=== PATIENT | male | born 1955 | race Caucasian/White ===

== ENCOUNTER 2023-03-08 13:24 | Emergency (ER) | payer MEDICARE, SELFPAY ==
--- NOTE | ~2023-03-08 | XR_ITS ---
XR ankle LT min 3V DATE: 03/08/2023 13:44 INDICATION: Inversion injury. Lateral pain. TECHNIQUE: 4 views COMPARISON: None FINDINGS: There is soft tissue swelling along the lateral aspect of the ankle. There is a linear obli que nondisplaced fracture of the distal femoral shaft/lateral malleolus. The medial and posterior mal leoli appear intact. Ankle mortise appears preserved. IMPRESSION: Nondisplaced lateral malleolar fracture with overlying soft tissue swelling Reviewed, dictated and finalized at location A.
[2023-03-08 13:34] VITALS: BP 153/68; PULSE 59; RESP 16; TEMP 37.1; O2SAT 97
--- NOTE | 2023-03-08 14:06 | ED.LOWEXIN ---
HPI - Extremity Injury (Lower) General Chief Complaint: Extremity Injury, Lower Stated Complaint: Left Ankle Injury Time Seen by Provider: 03/08/23 14:06 Source: patient Mode of arrival: ambulatory Limitations: no limitations History of Present Illness HPI Narrative: 67 y/o male presented for c/o left lateral ankle pain and swelling after injury just prior to arrival. States he slipped on wet leaves on a wooden board and rolled the ankle. Reports decreased range of motion of the ankle due to pain. Has been using crutches from home. Denies numbness, tingling or weakness. Related Data Home Medications Medication Instructions Recorded Confirmed bupropion HCl 150 mg 24 hr tablet, mg PO 03/08/23 extended release duloxetine 30 mg capsule,delayed 30 mg PO DAILY 03/08/23 03/08/23 release famotidine 20 mg tablet 20 mg PO BID 03/08/23 03/08/23 ferrous sulfate 325 mg (65 mg See Rx Instructions .Route .COMPLEX 03/08/23 03/08/23 iron) tablet pantoprazole 40 mg tablet,delayed 40 mg PO DAILY 03/08/23 03/08/23 release Allergies Allergy/AdvReac Type Severity Reaction Status Date / Time No Known Allergies Allergy Verified 03/08/23 14:00 Review of Systems Review of Systems: CONSTITUTIONAL: Denies body aches, fever, chills EYES: Denies visual changes ENT: Denies rhinorrhea, congestion CARDIOVASCULAR: Denies chest pain, palpitations, or edema. RESPIRATORY: Denies cough or dyspnea. GASTROINTESTINAL: Denies abdominal pain, nausea, vomiting, or diarrhea. SKIN: Denies rash, itching, or wounds. MUSCULOSKELETAL: Denies back pain, joint pain, or myalgia. NEUROLOGIC: Denies headache, numbness, tingling, or weakness. PSYCH: Denies depression or anxiety. All systems reviewed & are unremarkable except as noted in HPI and below PMFSH Past Medical History Medical History (Updated 03/08/23 @ 14:40 by Brianna Lechuga APRN) Renal carcinoma Surgical History Surgical History (Updated 03/08/23 @ 14:40 by Brianna Lechuga APRN) History of right nephrectomy Social History Social History (Updated 03/08/23 @ 14:41 by Brianna Lechuga APRN) Substance use: current Substance use type: marijuana Comments At time of signature, I have reviewed and agree with nursing past medical, surgical, social and family history unless otherwise noted. Please see nursing chart for further information. There is no relevant family history pertinent to the presenting complaint Exam Narrative: GENERAL: Well-appearing, and in no acute distress. HEAD: Normocephalic, atraumatic. CHEST: Speaks in full sentences. No respiratory distress. HEART: Regular rate and rhythm. Normal and equal peripheral pulses. EXTREMITIES: Left lateral ankle with moderate swelling, tenderness to lateral malleolus. Limited range of motion at ankle endorses pain with movement. Foot has normal strength and sensation No open wounds, bruising. Pulse palpable and equal bilaterally, skin warm, dry, pink. Capillary refill less than 3 seconds. SKIN: Warm, dry, no rash. NEURO: Alert and oriented x3. PSYCH: Normal mood and affect Course Course Emergency Course: Patient is aware of diagnosis, understands and agrees to treatment plan. Anticipatory guidance given. Patient agrees to follow-up as directed and is aware of reasons to seek care at the emergency department. Portions of this record may have been created with voice recognition software Level of Care: Express Care Visit Vital Signs Vital signs: Vital Signs Temperature 98.8 F 03/08/23 13:34 Pulse Rate 59 L 03/08/23 13:34 Respiratory Rate 16 03/08/23 13:34 Blood Pressure 153/68 H 03/08/23 13:34 Pulse Oximetry 97 03/08/23 13:34 Oxygen Delivery Room Air 03/08/23 13:34 Temperature 98.8 F 03/08/23 13:34 Pulse Rate 59 L 03/08/23 13:34 Respiratory Rate 16 03/08/23 13:34 Blood Pressure 153/68 H 03/08/23 13:34 Pulse Oximetry 97 03/08/23 13:34 Oxygen Delivery Room Air
== END 2023-03-08 14:20 | disposition home or self-care (01) ==
PROVIDERS: Emergency Provider Nurse Practitioner Family; PCP Internal Medicine Geriatric Medicine
DX: S82.65XA Nondisplaced fracture of lateral malleolus of left fibula, initial encounter for closed fracture (principal); X50.9XXA Other and unspecified overexertion or strenuous movements or postures, initial encounter; Z85.528 Personal history of other malignant neoplasm of kidney; Z90.5 Acquired absence of kidney; F12.90 Cannabis use, unspecified, uncomplicated
CPT/HCPCS: 29515; 73610; 99214; G0463